=== PATIENT | female | born 1965 | race Caucasian/White ===

== ENCOUNTER 2017-01-05 10:37 | Inpatient (IN) | payer OTHER ==
[~2017-01-05] VITALS: Ht 165.1 cm; Wt 66.3 kg
[2017-01-05 10:39] VITALS: BP 168/82; PULSE 104; RESP 21; TEMP 98; O2SAT 97
[2017-01-05] MEDS ORDERED: HYDR-3111 PO (10:53)
[2017-01-05] MEDS ORDERED: ZOFR4TAB PO (10:53)
[2017-01-05] MEDS ORDERED: IBUP800T23 PO (10:53)
[2017-01-05] MEDS ORDERED: ONDANSETRON ODT 4 MG TAB PO ONE (11:30)
[2017-01-05] MEDS ORDERED: ACETAMINOPHEN/HYDROcodone 325 MG/5 MG TAB PO ONE (11:30)
--- NOTE | 2017-01-05 11:52 | PD ---
HPI Chief Complaint: Complaint Time Seen by Provider: 11:48 Travel History International Travel<30 days: Yes Contact w/Intl Traveler<30days: Yes Name of Country Traveled to: [place] Traveled to known affect area: No History of Present Illness HPI 51-year-old female that presents to the ED for evaluation of inability to urinate. Per patient she had surgery yesterday and the hospital in [place] for evaluation of what appears to be hydronephrosis with obstruction of the ureter secondary to a big fibroid tumor. Per patient she's had this time are for years and is getting more severe. Per patient she was told that she eventually will have to have the hardware removed. Apparently the urologist apply a stent to help with the hydronephrosis and she was able to urinate yesterday but today she developed urinary retention. Per patient she felt severe sharp pain on her bladder area and she could not urinate. She had the urgency. Per patient the pain was severe 8 out of 10. She has no allergies to medication. No chest pain or shortness of breath. She is not from the area and she states that she has no primary care doctor at this time. She has no allergies to medication. Pain per patient is 8 out of 10 and does not radiate. She chronically takes pain medication and anti-emetics. She came here as they have a vacation home here in [facility]. PFSH Past Medical History Diminished Hearing: No Respiratory: Yes (fibroids) Influenza Vaccination: No ?: Not LMP: 12/04/16 Past Surgical History Gynecologic Surgery: Yes (R ureteral stent placed 01/05/16) Social History Alcohol Use: Yes (socially) Tobacco Use: No Substance Use: No Allergies-Medications (Allergen,Severity, Reaction): Coded Allergies: No Known Allergies (Unverified , 01/05/17) Reported Meds & Prescriptions Reported Meds & Active Scripts Active Reported Zofran (Ondansetron HCl) 4 Mg Tab 4 Mg PO Q8HR PRN Ibuprofen 800 Mg Tab 800 Mg PO Q8H PRN Vicodin (Hydrocodone-Acetaminophen) 5-300 Mg Tab 1 Tab PO TID PRN Review of Systems Except as stated in HPI: all other systems reviewed are Neg Physical Exam Narrative GENERAL: SKIN: Warm and dry. HEAD: Atraumatic. Normocephalic. EYES: Pupils equal and round. No scleral icterus. No injection or drainage. ENT: No nasal bleeding or discharge. Mucous membranes pink and moist. Tongue is midline. No uvula deviation. NECK: Trachea midline. No JVD. CARDIOVASCULAR: Regular rate and rhythm. No murmurs, S3, S4. RESPIRATORY: No accessory muscle use. Clear to auscultation. Breath sounds equal bilaterally. GASTROINTESTINAL: Abdomen soft, non-tender, distended with a mass on the lower abdomen. Hepatic and splenic margins not palpable. MUSCULOSKELETAL: Extremities without clubbing, cyanosis, or edema. No obvious deformities. Full range of motion of the upper and lower extremities bilaterally. 2+ pulses bilaterally. NEUROLOGICAL: Awake and alert. No obvious cranial nerve deficits. Motor grossly within normal limits. Five out of 5 muscle strength in the arms and legs. Normal speech. PSYCHIATRIC: Appropriate mood and affect; insight and judgment normal. Data Data Last Documented VS Vital Signs Date Time Temp Pulse Resp B/P Pulse Ox O2 Delivery O2 Flow Rate FiO2 01/05/17 10:39 98.0 104 21 168/82 97 Orders Complete Blood Count With Diff (01/05/17 11:06) Comprehensive Metabolic Panel (01/05/17 11:06) Lipase (01/05/17 11:06) Urinalysis - C+S If Indicated (01/05/17 11:06) Cath For Specimen (01/05/17 11:06) Magnesium (Mg) (01/05/17 11:06) Iv Access Insert/Monitor (01/05/17 11:06) Ct Abd/Pel W/O Iv Contrast (01/05/17 ) Acetamin-Hydrocod 325-5 Mg ([place] 5-325 (01/05/17 11:30) Ondansetron Odt (Zofran Odt) (01/05/17 11:30) Ct Abd/Pel W Iv Contrast(Rout) (01/05/17 12:23) Urine Culture (01/05/17 11:45) Sodium Chlor 0.9% 1000 Ml Inj (Ns 1000 M (01/05/17 12:40) Iodixanol 320 Inj (Rad Ct) (Visipaque 32 (01/05/17 13:38) Admit Order (Ed Use Only) (01/05/17 14:09) Labs Laboratory Tests Test 01/05/17 01/05/17 11:45 11:54 Urine Color DARK-YELLOW Urine Turbidity HAZY Urine pH 6.0 Urine Specific [place] 1.015 Urine Protein 30 mg/dL Urine Glucose (UA) TRACE mg/dL Urine Ketones NEG mg/dL Urine Occult Blood MOD Urine Nitrite NEG Urine Bilirubin NEG Urine Urobilinogen LESS THAN 2.0 MG/DL Urine Leukocyte Esterase LARGE Urine RBC /hpf Urine WBC 41 /hpf Urine Bacteria FEW /hpf Microscopic Urinalysis Comment CULTURE INDICATED White Blood Count 12.0 TH/MM3 Red Blood Count 4.05 MIL/MM3 Hemoglobin 10.9 GM/DL Hematocrit 33.7 % Mean Corpuscular Volume 83.2 FL Mean Corpuscular Hemoglobin 26.8 PG Mean Corpuscular Hemoglobin 32.2 % Concent Red Cell Distribution Width 13.3 % Platelet Count 217 TH/MM3 Mean Platelet Volume 8.1 FL Neutrophils (%) (Auto) 85.0 % Lymphocytes (%) (Auto) 5.2 % Monocytes (%) (Auto) 8.7 % Eosinophils (%) (Auto) 0.7 % Basophils (%) (Auto) 0.4 % Neutrophils # (Auto) 10.2 TH/MM3 Lymphocytes # (Auto) 0.6 TH/MM3 Monocytes # (Auto) 1.0 TH/MM3 Eosinophils # (Auto) 0.1 TH/MM3 Basophils # (Auto) 0.1 TH/MM3 CBC Comment DIFF FINAL Differential Comment Sodium Level 135 MEQ/L Potassium Level 3.3 MEQ/L Chloride Level 102 MEQ/L Carbon Dioxide Level 24.1 MEQ/L Anion Gap 9 MEQ/L Blood Urea Nitrogen 11 MG/DL Creatinine 1.57 MG/DL Estimat Glomerular Filtration 35 ML/MIN Rate Random Glucose 102 MG/DL Calcium Level 8.4 MG/DL Magnesium Level 2.0 MG/DL Total Bilirubin 0.5 MG/DL Aspartate Amino Transf 14 U/L (AST/SGOT) Alanine Aminotransferase 20 U/L (ALT/SGPT) Alkaline Phosphatase 67 U/L Total Protein 6.6 GM/DL Albumin 3.2 GM/DL Lipase 66 U/L [facility] Medical Decision Making Medical Screen Exam Complete: Yes Emergency Medical Condition: Yes Medical Record Reviewed: Yes Interpretation(s) Last Impressions Abdomen/Pelvis CT 01/05/17 1223 Signed Impressions: Service Date/Time: Thursday, January 05, 2017 13:13 - CONCLUSION: There is significant mass effect on the bladder which is displaced anteriorly with mild to moderate hydronephrosis in both kidneys related to a huge fibroids inside the uterus the largest measures 13 cm in size causing significant mass effect on the bladder and bilateral distal ureters. Jessica Welsh MD Abdomen/Pelvis CT 01/05/17 0000 Signed Impressions: Service Date/Time: Thursday, January 05, 2017 11:34 - CONCLUSION: The tip of the double-J stent on the right is adjacent to the balloon portion of the Espinal catheter and the bladder appears decompressed displaced anteriorly with either diffuse fibroid inside the uterus or possibly collection of urine extravasated behind the bladder. Please refer to postcontrast CT examination which was performed after this study for complete discussion. Jessica Weslh MD CBC & BMP Diagram 01/05/17 11:54 UA shows possible UTI Differential Diagnosis Urinary retention versus neurogenic bladder versus stent placement versus infection versus postsurgical complication Narrative Course 51-year-old female that presents to the ED for evaluation of urinary retention. Patient was properly examined and was found to have signs and symptoms very consistent appears to be urinary retention. Likely postsurgical complication. Patient had a Espinal catheter before I went into the room to had drained about 900 cc of fluid. Patient felt complete relief of symptoms. Patient has no other complaints. She does have a significant fibroid that appears to be causing all of the symptoms. Unclear as to why they have not removed this but from what I can tell she does not have a [facility] follow-up as of yet. At this time recommend labs and imaging to make sure patient doesn't have anything else. Case was discussed in my attending Dr Potter who agrees with plan. Labs and imaging showed massive fibroid masses on the uterus that apparently is blocking the bladder as well as ureters bilaterally with hydronephrosis. Case was discussed in my attending who recommends we speak with [facility] for further evaluation as patient's likely only treatment is to remove the uterus and the fibroids to get this resolved. Case was discussed with Dr. Tomlin who agrees to admission, but wants us to admit to medicine secondary to abnormal kidney function. Patient was told this and agrees with plan. IVONNE lo and Dr Morrison agrees to admit with consult to Dr Tomlin. Diagnosis Primary Impression: Obstructive uropathy Additional Impressions: Hydronephrosis Qualified Code: N13.30 - Hydronephrosis, unspecified hydronephrosis type Uterine fibroid Qualified Code: D25.9 - Uterine leiomyoma, unspecified location UTI (urinary tract infection) Qualified Code: N30.01 - Acute cystitis with hematuria Pelvic mass in female Admitting Information Admitting Physician Requests: Admit Chucho Powell Jan 05, 2017 11:52 Chucho Powell Jan 05, 2017 11:52
[2017-01-05 12:14] LABS: AUTOMATED NEUTROPHIL # 10.2 TH/MM3 (1.8-7.7); BASOPHIL # 0.1 TH/MM3 (0-0.2); BASOPHIL % 0.4 % (0.0-2.0); EOSINOPHIL # 0.1 TH/MM3 (0-0.4); EOSINOPHIL % 0.7 % (0.0-4.0); HEMATOCRIT 33.7 % (35.0-46.0); HEMO FLAGS DIFF FINAL; LYMPH % 5.2 % (9.0-44.0); LYMPHOCYTE # 0.6 TH/MM3 (1.0-4.8); MEAN CELL VOLUME 83.2 FL (80.0-100.0); MEAN CORPUSCULAR HEMOGLOBIN 26.8 PG (27.0-34.0); MEAN CORPUSCULAR HGB CONC 32.2 % (32.0-36.0); MONO % 8.7 % (0.0-8.0); PLATELET COUNT 217 TH/MM3 (150-450); RED BLOOD COUNT 4.05 MIL/MM3 (4.00-5.30); RED CELL DISTRIBUTION WIDTH 13.3 % (11.6-17.2)
[2017-01-05 12:27] LABS: BACTERIA, URINE FEW /hpf; BLOOD, URINE MOD (NEG); COMMENT (UR) CULTURE INDICATED; CULTURE IF INDICATED CULTURE INDICATED; GLUCOSE,URINE TRACE mg/dL (NEG); KETONE, URINE NEG (NEG); NITRITE,URINE NEG (NEG)
[2017-01-05 12:28] LABS: URINE COLOR DARK-YELLOW (YELLW/STRAW)
[2017-01-05 12:37] LABS: ALT (GPT) 20 U/L (10-53); ANION GAP 9 MEQ/L (5-15); AST (GOT) 14 U/L (15-37); BICARBONATE 24.1 MEQ/L (21.0-32.0); BLOOD UREA NITROGEN 11 MG/DL (7-18); CHLORIDE 102 MEQ/L (98-107); GLOMERULAR FILTRATION RATE 35 ML/MIN (>89); POTASSIUM 3.3 MEQ/L (3.5-5.1); SODIUM (NA) 135 MEQ/L (136-145)
[2017-01-05 12:39] LABS: ALKALINE PHOSPHATASE 67 U/L (45-117); TOTAL BILIRUBIN ADULT 0.5 MG/DL (0.2-1.0)
[2017-01-05] MEDS ORDERED: SODIUM CHLOR 0.9% 1000 ML INJ 1,000 ML IV SCH (12:40)
[2017-01-05] MEDS ORDERED: IODIXANOL 320 MG/ML 10 ML VIAL (for Rad CT) IV ONE (13:38)
--- NOTE | 2017-01-05 13:58 | RADRPT ---
EXAM DATE/TIME: 01/05/2017 11:34 [facility] COMPARISON: No previous studies available for comparison. INDICATIONS : Abdomen pain. Urine retention post stent. ORAL CONTRAST: No oral contrast ingested. RADIATION DOSE: 7.57 CTDIvol (mGy) MEDICAL HISTORY : Fibroid SURGICAL HISTORY : None. ENCOUNTER: Initial ACUITY: 2 days PAIN SCALE: 6/10 LOCATION: Bilateral abdomen. TECHNIQUE: Volumetric scanning of the abdomen and pelvis was performed. Using automated exposure control and ad justment of the mA and/or kV according to patient size, radiation dose was kept as low as reasonably achievable to obtain optimal diagnostic quality images. DICOM format image data is available electro nically for review and comparison. FINDINGS: Double-J stent is present on the right side and there appears to be either a large mass behind t he bladder which is completely displaced anteriorly versus fluid collection and possibly urine extrav asation at this site. The uterus appears enlarged and the distal tip of the double J stent is in donna cent to the balloon portion of the Espinal catheter. The proximal portion of the double-J stent on the right side is inside the renal pelvis. There is slight to moderate hydronephrosis in both kidneys. Th e liver, spleen, pancreas, adrenals are unremarkable. CONCLUSION: The tip of the double-J stent on the right is adjacent to the balloon portion of the Espinal catheter a nd the bladder appears decompressed displaced anteriorly with either diffuse fibroid inside the uteru s or possibly collection of urine extravasated behind the bladder. Please refer to postcontrast CT ex amination which was performed after this study for complete discussion. Jessica Welsh MD on January 05, 2017 at 13:54 Board Certified Radiologist. This report was verified electronically.
--- NOTE | 2017-01-05 14:01 | RADRPT ---
EXAM DATE/TIME: 01/05/2017 13:13 [facility] COMPARISON: CT ABDOMEN & PELVIS W/O CONTRAST, January 05, 2017, 11:34. INDICATIONS : Urinary retention. IV CONTRAST: 50 cc Visipaque (iodixanol) IV ORAL CONTRAST: No oral contrast ingested. RADIATION DOSE: 9.96 CTDIvol (mGy) MEDICAL HISTORY : None SURGICAL HISTORY : Ureteral stent. ENCOUNTER: Initial ACUITY: 1 day PAIN SCALE: 5/10 LOCATION: Bilateral TECHNIQUE: Volumetric scanning of the abdomen and pelvis was performed. Using automated exposure control and ad justment of the mA and/or kV according to patient size, radiation dose was kept as low as reasonably achievable to obtain optimal diagnostic quality images. DICOM format image data is available electro nically for review and comparison. FINDINGS: There is hydronephrosis in both kidneys and the proximal tip of the double J stent is in good lo cation within the right renal pelvis. The distal tip appears to be coiled on the right side adjacent to the balloon tip of the patient's Espinal catheter. Delayed imaging was performed and contrast fills the bladder which is basically decompressed and displaced anteriorly by a huge fibroids within the ut erus the largest one measures 13.3 cm in size. There is no evidence for urine extravasation. CONCLUSION: There is significant mass effect on the bladder which is displaced anteriorly with mild to moderate h ydronephrosis in both kidneys related to a huge fibroids inside the uterus the largest measures 13 cm in size causing significant mass effect on the bladder and bilateral distal ureters. Jessica Welsh MD on January 05, 2017 at 13:56 Board Certified Radiologist. This report was verified electronically.
[2017-01-05] MEDS ORDERED: ACETAMINOPHEN 325 MG TAB PO PRN (17:00)
[2017-01-05] MEDS ORDERED: MAGNESIUM HYDROXIDE SUSP 30 ML CUP PO PRN (17:00)
[2017-01-05] MEDS ORDERED: BISACODYL 10 MG SUPP RECTAL PRN (17:00)
[2017-01-05] MEDS ORDERED: ONDANSETRON HCL 4 MG/2 ML VIAL IVP PRN (17:00)
[2017-01-05] MEDS ORDERED: SODIUM CHLORIDE 0.9% FLUSH 10 ML FLUSH IV FLUSH PRN (17:00)
[2017-01-05] MEDS ORDERED: LACTULOSE SYRUP 20 GM/30 ML CUP PO PRN (17:00)
[2017-01-05] MEDS ORDERED: SENNOSIDES 8.6 MG TAB PO PRN (17:00)
[2017-01-05] MEDS ORDERED: POTASSIUM CHLORIDE 10 MEQ CONTROLLED RELEASE TAB PO ONE (17:00)
[2017-01-05 17:20] VITALS: BP 130/81; PULSE 62; RESP 14; O2SAT 100
[2017-01-05] MEDS: SODIUM CHLOR 0.9% 1000 ML INJ 1,000 ML IV SCH (17:20)
--- NOTE | 2017-01-05 17:30 | HHI.HP ---
[facility] Service [facility] Primary Care Physician Non-Staff Admission Diagnosis bladder obstruction, urether obstruction with hydronephrosis, fibroi Diagnoses: Chief Complaint: Urinary retention Large uterine fibroid Travel History International Travel<30 Days: Yes Contact w/Intl Traveler <30 Da: Yes Name of Country Traveled to: [place] Traveled to Known Affected Are: No History of Present Illness Written by Lashell Hall PA-C acting as scribe for Dr. Morrison on 01/05/17 at 17:07. This is a 51-year-old female with no significant past medical history who developed sudden onset of the right upper quadrant pain on that became so severe that she went to a hospital in [place] and was diagnosed with a right sided hydronephrosis with obstruction of the ureter secondary to a large fibroid tumor. CT report dated 01/02/17 states moderate severity right hydronephrosis and hydroureter due to a 13 cm pelvic mass which most likely is a fibroid uterus impinging on the posterior bladder wall. Patient also brought in for review report of a right upper quadrant ultrasound dated 01/02/17 stating mild right-sided hydronephrosis, no intrarenal calculi demonstrated enlarged myomatous uterus with dominant posterior fibroid measuring up to 10.9 x 7.3 x 9.3 cm. Also, 2 nonmobile non-shadowing echogenic foci along the gallbladder wall towards the neck which measures 2-3 mm most compatible with gallbladder polyps likely cholesterol polyps. No evidence of cholelithiasis or gallbladder wall thickening. Common bile duct is normal in at caliber 5 mm. Patient underwent ureteral stent placement and was discharged. Today, patient developed sudden onset of urinary retention associated with significant abdominal bloating and pain. Patient came into the ED and had a catheter placed with 900ml urinary output. Following placement of the catheter, her symptoms resolved. Patient denies any recent illness. She denies any fever or chills. She denies any nausea, vomiting or diarrhea. She denies any chest pain or shortness of breath. Patient reports normal menstrual cycles and denies any branch credit counselor complaints. She reports having her regular branch credit counselor exam 2 weeks ago and was not notified of any abnormalities. Review of Systems Except as stated in HPI: all other systems reviewed are Neg Past Family Social History Past Medical History Patient denies any previous past medical history Past Surgical History Patient denies any previous surgical procedures Reported Medications Zofran (Ondansetron HCl) 4 Mg Tab 4 Mg PO Q8HR PRN Ibuprofen 800 Mg Tab 800 Mg PO Q8H PRN Vicodin (Hydrocodone-Acetaminophen) 5-300 Mg Tab 1 Tab PO TID PRN Allergies: Coded Allergies: No Known Allergies (Unverified , 01/05/17) Active Ordered Medications Current Medications Medications (Trade) Dose Ordered Sig/Leslie Route Start Time Stop Time Status Last Admin (NS 1000 ml Inj) 1,000 ml @ 100 mls/hr Q10H IV 01/05/17 16:58 (NS Flush) 2 ml UNSCH PRN IV FLUSH 01/05/17 17:00 UNV (NS Flush) 2 ml BID IV FLUSH 01/05/17 21:00 UNV (Tylenol) 650 mg Q4H PRN PO 01/05/17 17:00 (Zofran Inj) 4 mg Q6H PRN IVP 01/05/17 17:00 (Phuong-Colace) 1 tab BID PO 01/05/17 21:00 (Milk Of Magnesia Liq) 30 ml Q12H PRN PO 01/05/17 17:00 (Senokot) 17.2 mg Q12H PRN PO 01/05/17 17:00 (Dulcolax Supp) 10 mg DAILY PRN RECTAL 01/05/17 17:00 Lactulose 30 ml 30 ml DAILY PRN PO 01/05/17 17:00 (Rocephin Inj/NS Inj) 100 ml @ 200 mls/hr Q24H IV 01/05/17 17:00 UNV Family History Sister, breast cancer Social History Patient denies any tobacco use. Patient reports "social" drinking. Denies any illicit drug use. She is and has 2 children. Physical Exam Vital Signs Vital Signs Date Time Temp Pulse Resp B/P Pulse Ox O2 Delivery O2 Flow Rate FiO2 01/05/17 10:39 98.0 104 21 168/82 97 Physical Exam GENERAL: This is a well-nourished, well-developed patient, in no apparent distress. Awake and alert. Daughters at the bedside. SKIN: No rashes, ecchymoses or lesions. Cool and dry. HEAD: Atraumatic. Normocephalic. No temporal or scalp tenderness. EYES: Pupils equal round and reactive. Extraocular motions intact. No scleral icterus. No injection or drainage. ENT: Nose without bleeding, purulent drainage or septal hematoma. Throat without erythema, tonsillar hypertrophy or exudate. Uvula midline. Airway patent. NECK: Trachea midline. No lymphadenopathy. Supple, nontender, no meningeal signs. CARDIOVASCULAR: Regular rate and rhythm. 2/6 systolic murmur present. RESPIRATORY: Clear to auscultation. Breath sounds equal bilaterally. No wheezes , rales, or rhonchi. GASTROINTESTINAL: Abdomen soft, non-tender. No hepato-splenomegaly. No guarding. Palpable mass extending up to just below the umbilicus. Mild left- sided CVA tenderness. MUSCULOSKELETAL: Extremities without clubbing, cyanosis, or edema. No joint tenderness, effusion, or edema noted. No calf tenderness. NEUROLOGICAL: Awake and alert. Able to move all extremities. Motor and sensory grossly intact. Normal speech. Laboratory Laboratory Tests Test 01/05/17 01/05/17 11:45 11:54 Urine Color DARK-YELLOW Urine Turbidity HAZY Urine pH 6.0 Urine Specific [place] 1.015 Urine Protein 30 Urine Glucose (UA) TRACE Urine Ketones NEG Urine Occult Blood MOD Urine Nitrite NEG Urine Bilirubin NEG Urine Urobilinogen LESS THAN 2.0 Urine Leukocyte Esterase LARGE Urine RBC Urine WBC 41 Urine Bacteria FEW Microscopic Urinalysis Comment CULTURE INDICATED White Blood Count 12.0 Red Blood Count 4.05 Hemoglobin 10.9 Hematocrit 33.7 Mean Corpuscular Volume 83.2 Mean Corpuscular Hemoglobin 26.8 Mean Corpuscular Hemoglobin 32.2 Concent Red Cell Distribution Width 13.3 Platelet Count 217 Mean Platelet Volume 8.1 Neutrophils (%) (Auto) 85.0 Lymphocytes (%) (Auto) 5.2 Monocytes (%) (Auto) 8.7 Eosinophils (%) (Auto) 0.7 Basophils (%) (Auto) 0.4 Neutrophils # (Auto) 10.2 Lymphocytes # (Auto) 0.6 Monocytes # (Auto) 1.0 Eosinophils # (Auto) 0.1 Basophils # (Auto) 0.1 CBC Comment DIFF FINAL Differential Comment Sodium Level 135 Potassium Level 3.3 Chloride Level 102 Carbon Dioxide Level 24.1 Anion Gap 9 Blood Urea Nitrogen 11 Creatinine 1.57 Estimat Glomerular Filtration 35 Rate Random Glucose 102 Calcium Level 8.4 Magnesium Level 2.0 Total Bilirubin 0.5 Aspartate Amino Transf 14 (AST/SGOT) Alanine Aminotransferase 20 (ALT/SGPT) Alkaline Phosphatase 67 Total Protein 6.6 Albumin 3.2 Lipase 66 Date/Time Procedure Status Source Growth 01/05/17 11:45 Urine Culture Received Urine Clean Catch Pending Result Diagram: 01/05/17 1154 01/05/17 1154 Imaging Last Impressions Abdomen/Pelvis CT 01/05/17 1223 Signed Impressions: Service Date/Time: Thursday, January 05, 2017 13:13 - CONCLUSION: There is significant mass effect on the bladder which is displaced anteriorly with mild to moderate hydronephrosis in both kidneys related to a huge fibroids inside the uterus the largest measures 13 cm in size causing significant mass effect on the bladder and bilateral distal ureters. Jessica Welsh MD Assessment and Plan Assessment and Plan 51-year-old female with no significant past medical history who developed sudden onset of the right quadrant pain on that became so severe that she went to a hospital in [place] and was diagnosed with a right sided hydronephrosis with obstruction of the ureter secondary to a large fibroid tumor and underwent ureteral stent placement. Today, patient developed urinary retention with associated abdominal bloating and pain. Catheter placed and 900cc urine drained. Large uterine fibroid - CT abd/pelvis personally reviewed shows significant mass effect on the bladder which is displaced anteriorly with mild to moderate hydronephrosis in both kidneys related to huge fibroids inside the uterus the largest measuring 13 cm in size causing significant mass effect on the bladder and bilateral distal ureters. - Gynecology consulted, Dr. Tomlin discussed with ED service - Plan for possible hysterectomy tomorrow - Nothing by mouth after midnight Urinary Retention - secondary to large uterine fibroid - continue jo catheter UTI - UA with proteinuria, moderate occult blood, large leukocytes and 41 WBCs - IV ceftriaxone - follow up on urine culture results EUGENIO - Creatinine 1.57 - secondary to obstruction/urinary retention - Avoid nephrotoxic agents - IVF - am labs to monitor trend Anemia - mild - monitor Hypokalemia - Repletion ordered - A.m. labs to monitor trend Hyponatremia -mild - IVF DVT prophylaxis - Bilateral SCD/DELL joseph Discussed Condition With patient, daughter, ED physician Physician Certification 2 Midnight Certification Type: Admission for Inpatient Services Order for Inpatient Services The services are ordered in accordance with Medicare regulations or non- Medicare payer requirements, as applicable. In the case of services not specified as inpatient-only, they are appropriately provided as inpatient services in accordance with the 2-midnight benchmark. Estimated LOS (days): 3 3 days is the estimated time the patient will need to remain in the hospital, assuming treatment plan goals are met and no additional complications. Post-Hospital Plan: Not yet determined Lashell Hall Jan 05, 2017 17:30
[2017-01-05] MEDS: cefTRIAXone INJ 2,000 MG in SODIUM CHLORIDE 0.9% INJ 100 ML IV SCH (18:16)
[2017-01-05] MEDS ORDERED: ACETAMINOPHEN/HYDROcodone 325 MG/5 MG TAB PO PRN (19:45)
[2017-01-05] MEDS: DOCUSATE SODIUM 50 MG/SENNA 8.6 MG TAB PO SCH (19:56)
[2017-01-05] MEDS: ACETAMINOPHEN/HYDROcodone 325 MG/10 MG TAB PO PRN (19:56)
[2017-01-05 20:00] VITALS: BP 143/78; PULSE 66; RESP 17; TEMP 99.9; O2SAT 99
[2017-01-05] MEDS: SODIUM CHLORIDE 0.9% FLUSH 10 ML FLUSH IV FLUSH SCH (21:00)
--- NOTE | 2017-01-05 21:12 | PD.CONS ---
HPI Chief Complaint Urinary retention Date Seen: Jan 05, 2017 Time Seen: 20:30 Travel History International Travel<30 Days: Yes Contact w/Intl Traveler<30Days: Yes Name of Country Traveled to: [place] Known Affected Area: No History of Present Illness HPI 51y/o P2002 presented to ED with acute onset RUQ pain localized to under her right ribcage that started the morning of 01/02/17. She reports the pain was excruciating and 10/10. There were no aggravating or alleviating factors and the pain was constant. She presented to [facility] where she was noted on a RUQ US to have a dominant posterior fibroid measuring up to 10.9x7.3x9.3cm. She was also noted to have right sided hydronephrosis and hydroureter on CT, so underwent placement of right ureteral stent yesterday on . She reports her pain resolved after the stent was placed and she was d/ c home. Upon questioning, she realized she only urinated a small amount after she was home, but was busy getting ready to leave for vacation today. She was last able to void at home, but just a small amount sometime between 7-11pm. She reports she had the sensation to void but was only able to pass a small amount of urine. She reports that she was not able to void at all after that until she came to the ED this morning. She came to the ED because she started having severe pain in her lower abdomen in her bladder area that was 8/10 and a lot of pressure in her bladder. There was no radiation of the pain and no alleviating or aggravating factors (except it was getting worse over time). There were no attempted treatments. She came up here after she was released from the hospital because [place] in [facility] and she was feeling well; they were planning to vacation here until Friday (for 1w). She had a jo placed after arriving in the ED and had about (per records) 900cc urine retained. She reports that her pain immediately resolved until about an hour ago when she had some mild flank pain that has resolved. In the ED, CT showed tip of double-J stent on the right is adjacent to the balloon portion of the Jo and the bladder appears decompressed displaced anteriory with either diffuse fibroid inside the uterus or possibly collection of urine extravacated behind the bladder. F/U contrast CT showed significant mass effect on the bladder with is displaced anteriorly with mild to moderate hydronephrosis in both kidneys related to hige fibroids inside the uterus with the largest measuring 13cm in size causing significant mass effect on the bladder and bilateral distal ureters. Labs showed K 3.3, Cr 1.57 (Cr from 01/02/17 0.75) Of note, the patient reports she sees her magazine feeder regularly and had her annual exam about 2w ago. She was not informed of any abnormality. She notes her doctor, Dr. Flaquita Nava is on vacation until next Friday (01/12/17), but she was seen at [facility] by Dr. Piotr Gomez who oked her d/c home and instructed her to f/u with her primary physician upon her return, She denies any abnormal bleeding, reports she is still having regular menses that occur every month. Her LMP was 01/03/17. She denies any abnl d/c or other utilities service investigator complaints. Para: 2 : 2 Last Menstrual Period: Dec 04, 2016 Miscarriage: 0 : 0 History Past Medical History Narrative Medical Denies Obstetric History Obstetric History P2002 FT x2 Menarch at 13 Menses last 7d Menses regular and occur every month LMP 12/04/16 Denies h/o abnl PAPs or STDs Last PAP 2w ago, normal Past Surgical History Narrative Surgical R ureteral stent (01/04/17) Family History Narrative Family History Breast CA (sister, dx at 45y/o) Social History Alcohol Use: Yes (Social only) Tobacco Use: No Substance Abuse: No Allergies-Medications (Allergen,Severity, Reaction): Coded Allergies: No Known Allergies (Unverified , 01/05/17) Home Meds Reported Medications Ondansetron (Zofran)4 Mg Tab4 Mg PO Q8HR PRN (NAUSEA OR VOMITING) Ref 0 01/05/17 Ibuprofen 800 Mg Saa590 Mg PO Q8H PRN (Pain/Inflammation) #60 TAB Ref 0 01/05/17 Hydrocodone-Acetaminophen (Vicodin)5-300 Mg Tab1 Tab PO TID PRN (PAIN) Ref 0 01/05/17 Review of Systems Except as stated in HPI: all other systems reviewed are Neg Physical Exam Vital Signs Date Time Temp Pulse Resp B/P Pulse Ox O2 Delivery O2 Flow Rate FiO2 01/05/17 20:00 99.9 66 17 143/78 99 01/05/17 17:20 62 14 130/81 100 Room Air 01/05/17 10:39 98.0 104 21 168/82 97 Narrative GENERAL: Well-nourished, well-developed patient. SKIN: Warm and dry. HEAD: Normocephalic and atraumatic. EYES: No scleral icterus. No injection or drainage. ENT: No nasal drainage noted. Mucous membranes pink. Airway patent. NECK: Supple, trachea midline. No JVD. CARDIOVASCULAR: Regular rate and rhythm without murmurs, gallops, or rubs. RESPIRATORY: Breath sounds equal bilaterally. No accessory muscle use. BREASTS: deferred ABDOMEN/GI: Abdomen soft, non-tender, bowel sounds present, no rebound, no guarding Fundal Height: Uterus enlarged, approximately 12-14w size GENITOURINARY: External Genitalia: intact and normal in appearance BUS glands:normal Cervix: visibly normal, closed; normal rugae and physiological d/c, no cervical/vaginal masses EXTREMITIES: No cyanosis or edema. BACK: Nontender without obvious deformity. No CVA tenderness. NEUROLOGICAL: Awake and alert. Motor and sensory grossly within normal limits. Five out of 5 muscle strength in all muscle groups. Normal speech. MS: grossly normal ROM, gait, muscle strength PSYCH: grossly normal memory/affect, rest grossly normal Data Data Orders Complete Blood Count With Diff (01/05/17 11:06) Comprehensive Metabolic Panel (01/05/17 11:06) Lipase (01/05/17 11:06) Urinalysis - C+S If Indicated (01/05/17 11:06) Cath For Specimen (01/05/17 11:06) Magnesium (Mg) (01/05/17 11:06) Iv Access Insert/Monitor (01/05/17 11:06) Ct Abd/Pel W/O Iv Contrast (01/05/17 ) Acetamin-Hydrocod 325-5 Mg (Furlong 5-325 (01/05/17 11:30) Ondansetron Odt (Zofran Odt) (01/05/17 11:30) Ct Abd/Pel W Iv Contrast(Rout) (01/05/17 12:23) Urine Culture (01/05/17 11:45) Sodium Chlor 0.9% 1000 Ml Inj (Ns 1000 M (01/05/17 12:40) Iodixanol 320 Inj (Rad Ct) (Visipaque 32 (01/05/17 13:38) Admit Order (Ed Use Only) (01/05/17 14:09) Physician Name Changes (01/05/17 ) Consult Gynecology (01/05/17 ) (Hub Use Only)Inp Phy Cons/Ref (01/05/17 ) Admit To Inpatient (01/05/17 ) Vital Signs (Adult) Q4H (01/05/17 16:58) Activity Bed Rest With Brp (01/05/17 16:58) Intake + Output DUANE.QSHIFT (01/05/17 16:58) Sodium Chlor 0.9% 1000 Ml Inj (Ns 1000 M (01/05/17 16:58) Sodium Chloride 0.9% Flush (Ns Flush) (01/05/17 17:00) Sodium Chloride 0.9% Flush (Ns Flush) (01/05/17 21:00) Acetaminophen (Tylenol) (01/05/17 17:00) Ondansetron Inj (Zofran Inj) (01/05/17 17:00) Comprehensive Metabolic Panel (01/06/17 06:00) Complete Blood Count With Diff (01/06/17 06:00) Scd Bilateral/Knee High DUANE.BID (01/05/17 16:58) Docusate Sodium-Senna (Phuong-Colace) (01/05/17 21:00) Magnesium Hydroxide Liq (Milk Of Magnesi (01/05/17 17:00) Sennosides (Senokot) (01/05/17 17:00) Bisacodyl Supp (Dulcolax Supp) (01/05/17 17:00) Lactulose Liq (Lactulose Liq) (01/05/17 17:00) Inpatient Certification (01/05/17 ) Ceftriaxone Inj (Rocephin Inj) (01/05/17 18:00) Potassium Chloride (Kcl) (01/05/17 17:00) Diet Regular Basic (01/05/17 Dinner) Npo After Midnight W/ Po Meds (01/06/17 Breakfast) Acetamin-Hydrocod 325-5 Mg (Furlong 5-325 (01/05/17 19:45) Acetamin-Hydrocod 325-10 Mg (Furlong 10-32 (01/05/17 19:45) Labs Laboratory Tests Test 01/05/17 01/05/17 11:45 11:54 Urine Color DARK-YELLOW Urine Turbidity HAZY Urine pH 6.0 Urine Specific Apison 1.015 Urine Protein 30 Urine Glucose (UA) TRACE Urine Ketones NEG Urine Occult Blood MOD Urine Nitrite NEG Urine Bilirubin NEG Urine Urobilinogen LESS THAN 2.0 Urine Leukocyte Esterase LARGE Urine RBC Urine WBC 41 Urine Bacteria FEW Microscopic Urinalysis Comment CULTURE INDICATED White Blood Count 12.0 Red Blood Count 4.05 Hemoglobin 10.9 Hematocrit 33.7 Mean Corpuscular Volume 83.2 Mean Corpuscular Hemoglobin 26.8 Mean Corpuscular Hemoglobin 32.2 Concent Red Cell Distribution Width 13.3 Platelet Count 217 Mean Platelet Volume 8.1 Neutrophils (%) (Auto) 85.0 Lymphocytes (%) (Auto) 5.2 Monocytes (%) (Auto) 8.7 Eosinophils (%) (Auto) 0.7 Basophils (%) (Auto) 0.4 Neutrophils # (Auto) 10.2 Lymphocytes # (Auto) 0.6 Monocytes # (Auto) 1.0 Eosinophils # (Auto) 0.1 Basophils # (Auto) 0.1 CBC Comment DIFF FINAL Differential Comment Sodium Level 135 Potassium Level 3.3 Chloride Level 102 Carbon Dioxide Level 24.1 Anion Gap 9 Blood Urea Nitrogen 11 Creatinine 1.57 Estimat Glomerular Filtration 35 Rate Random Glucose 102 Calcium Level 8.4 Magnesium Level 2.0 Total Bilirubin 0.5 Aspartate Amino Transf 14 (AST/SGOT) Alanine Aminotransferase 20 (ALT/SGPT) Alkaline Phosphatase 67 Total Protein 6.6 Albumin 3.2 Lipase 66 Date/Time Procedure Status Source Growth 01/05/17 11:45 Urine Culture Received Urine Clean Catch Pending MDM Plan A/P: 51y/o P2002 1. Large fibroid uterus with posterior fibroid causing ureteral obstruction. patient s/p right ureteral stent placement. Plan in place from Dr. Gomez at [facility] for patient to f/u with primary utilities service investigator in 1w to schedule hysterectomy after primary MD and patietn return from vacation. Discussed with patient that in most cases, fibroids are present and grow slowly over time; discussed the much less common case of a rapidly enlarging uterine sarcoma. Suspect this fibroid has been present but due to location hadn't previously been noted due to posterior location and lack of symptoms. Discussed treatment options with patient and with need for hysterectomy for definitive treatment due to ureteral obstruction which appears to have been relieved by right ureteral stent. Discussed the several approaches to hysterectomy but that patient would most likely require abdominal hysterectomy. Discussed that no emergent indication for hysterectomy tonight. Discussed possible hysterectomy as inpatient vs d/c to have hysterectomy with her primary MD as long as able to void and her elevated creatine resolved; will discuss with primary team in am. Discussed that CT reports indicate more fibroids present and will obtain pelvic/ TV US for more detailed information on fibroids. Will discuss with primary attending and consult with Dr. Horner (utilities service investigator coverage) in am if needed after US results and am labs available. 2. Urinary retention: symptomatically improved with bladder decompression, may be secondary to overdistension of bladder postoperatively related to prior surgical intervention. 3. Acute kidney injury: management as per primary team 4. UTI: continue ceftriaxone 5. Hypokalemia: as per primary team Records reviewed, including patients records from [facility] Admitting diagnosis: bladder obstruction, urether obstruction with hydronephrosis, Bobbi Cormier MD Jan 05, 2017 21:12
--- NOTE | 2017-01-05 23:43 | RADRPT ---
EXAM DATE/TIME: 01/05/2017 22:19 [place] COMPARISON: CT ABDOMEN & PELVIS W CONTRAST, January 05, 2017, 13:13. INDICATIONS : Fibroids seen on CT. MEDICAL HISTORY : . SURGICAL HISTORY : Right ureteral stent. ENCOUNTER: Initial ACUITY: 2 days PAIN SCORE: 2/10 LOCATION: Bilateral pelvis MEASUREMENTS: TRANSABDOMINAL: UTERUS: 15.0 x 11.3 x 9.1cm RIGHT OVARY: 2.6 x 1.9 x 1.5cm LEFT OVARY: 4.7 x 3.0 x 2.4cm TRANSVAGINAL: ENDOMETRIAL STRIPE: 8 mm FINDINGS: UTERUS: Uterus is enlarged and heterogeneous with lobulated contour. At least 2 hypoechoic heterogeneous guanako d appearing masses are identified. One is located in the posterior uterine body measuring approximate ly 10.7 x 8.4 x 10.9 cm. Another is located in the left fundus measuring approximately 3.1 x 2.5 x 2. 9 cm. RIGHT OVARY: Ovary contains no mass or significant cystic lesion. LEFT OVARY: Ovary contains no mass or significant cystic lesion. MISCELLANEOUS: There is trace free fluid in the pelvis. CONCLUSION: 1. Enlarged and heterogeneous uterus containing at least 2 masses with the largest measuring 10.9 cm. These are not completely characterized on this study but could represent uterine fibroids. The large st has mass effect on the endometrium. 2. Trace free fluid in the posterior cul-de-sac. Faisal Gambino MD on January 05, 2017 at 23:37 Board Certified Radiologist. This report was verified electronically.
[2017-01-06] VITALS: BP 127/71; PULSE 67; RESP 18; TEMP 99.7; O2SAT 98
[2017-01-06] MEDS: ACETAMINOPHEN/HYDROcodone 325 MG/10 MG TAB PO PRN ×5 (00:17→21:37)
[2017-01-06] MEDS ORDERED: MORPHINE SULFATE 4 MG/ML INJ IV PUSH ONE (01:00)
[2017-01-06 03:03] VITALS: BP 134/75; PULSE 68
[2017-01-06] MEDS: MORPHINE SULFATE 4 MG/ML INJ IV PUSH PRN ×4 (07:25→23:20)
[2017-01-06] MEDS: SODIUM CHLOR 0.9% 1000 ML INJ 1,000 ML IV SCH ×3 (07:29→21:46)
[2017-01-06 07:54] LABS: AUTOMATED NEUTROPHIL # 7.7 TH/MM3 (1.8-7.7); BASOPHIL # 0.1 TH/MM3 (0-0.2); BASOPHIL % 1.4 % (0.0-2.0); EOSINOPHIL # 0.2 TH/MM3 (0-0.4); EOSINOPHIL % 2.1 % (0.0-4.0); HEMATOCRIT 31.1 % (35.0-46.0); HEMO FLAGS DIFF FINAL; LYMPH % 8.6 % (9.0-44.0); LYMPHOCYTE # 0.8 TH/MM3 (1.0-4.8); MEAN CELL VOLUME 82.4 FL (80.0-100.0); MEAN CORPUSCULAR HEMOGLOBIN 27.3 PG (27.0-34.0); MEAN CORPUSCULAR HGB CONC 33.2 % (32.0-36.0); MONO % 8.5 % (0.0-8.0); NEUT % 79.4 % (16.0-70.0); PLATELET COUNT 215 TH/MM3 (150-450); RED BLOOD COUNT 3.78 MIL/MM3 (4.00-5.30); RED CELL DISTRIBUTION WIDTH 13.5 % (11.6-17.2); WHITE BLOOD COUNT 9.7 TH/MM3 (4.0-11.0)
[2017-01-06 08:00] VITALS: BP 142/84; PULSE 70; RESP 14; TEMP 98.7; O2SAT 96
[2017-01-06 08:21] LABS: ALKALINE PHOSPHATASE 64 U/L (45-117); ALT (GPT) 18 U/L (10-53); ANION GAP 10 MEQ/L (5-15); AST (GOT) 13 U/L (15-37); BICARBONATE 22.4 MEQ/L (21.0-32.0); BLOOD UREA NITROGEN 8 MG/DL (7-18); CHLORIDE 111 MEQ/L (98-107); GLOMERULAR FILTRATION RATE 93 ML/MIN (>89); POTASSIUM 3.5 MEQ/L (3.5-5.1); SODIUM (NA) 143 MEQ/L (136-145); TOTAL BILIRUBIN ADULT 0.3 MG/DL (0.2-1.0)
[2017-01-06] MEDS: SODIUM CHLORIDE 0.9% FLUSH 10 ML FLUSH IV FLUSH SCH ×2 (09:08→21:38)
[2017-01-06] MEDS: DOCUSATE SODIUM 50 MG/SENNA 8.6 MG TAB PO SCH ×2 (09:09→21:38)
--- NOTE | 2017-01-06 09:29 | PD.CONS ---
History & Physical H&P S: HPI 51y/o P2002 presented to ED with acute onset RUQ pain localized to under her right ribcage that started the morning of 01/02/17, noted on a RUQ US to have a dominant posterior fibroid measuring up to 10.9x7.3x9.3cm with right sided hydronephrosis and hydroureter on CT, s/p right ureteral stent on 01/04/17, presented yesterday with oliguria s/p jo placed after arriving in the ED and had about (per records) 900cc urine retained. She reports that her pain immediately resolved. In the ED, CT showed tip of double-J stent on the right is adjacent to the balloon portion of the Jo and the bladder appears decompressed displaced anteriorly with either diffuse fibroid inside the uterus or possibly collection of urine extravasated behind the bladder. F/U contrast CT showed significant mass effect on the bladder with is displaced anteriorly with mild to moderate hydronephrosis in both kidneys related to huge fibroids inside the uterus with the largest measuring 13cm in size causing significant mass effect on the bladder and bilateral distal ureters. Overnight, patient was doing well until about 1 AM last night, when she experienced sudden onset of left sided flank pain, which resolved with morphine. She denies any fever, chills. Jo is still in. O: Physical Exam Vital Signs Date Time Temp Pulse Resp B/P Pulse Ox O2 Delivery O2 Flow Rate FiO2 01/05/17 20:00 99.9 66 17 143/78 99 01/05/17 17:20 62 14 130/81 100 Room Air 01/05/17 10:39 98.0 104 21 168/82 97 Narrative GENERAL: Well-nourished, well-developed patient. SKIN: Warm and dry. HEAD: Normocephalic and atraumatic. EYES: No scleral icterus. No injection or drainage. ENT: No nasal drainage noted. Mucous membranes pink. Airway patent. NECK: Supple, trachea midline. No JVD. CARDIOVASCULAR: Regular rate and rhythm without murmurs, gallops, or rubs. RESPIRATORY: Breath sounds equal bilaterally. No accessory muscle use. BREASTS: deferred ABDOMEN/GI: Abdomen soft, non-tender, bowel sounds present, no rebound, no guarding Fundal Height: Uterus enlarged, approximately 12-14w size : Jo in place draining dark yellow urine EXTREMITIES: No cyanosis or edema. BACK: Nontender without obvious deformity. No CVA tenderness. NEUROLOGICAL: Awake and alert. Motor and sensory grossly within normal limits. Five out of 5 muscle strength in all muscle groups. Normal speech. MSK: grossly normal ROM, gait, muscle strength PSYCH: grossly normal memory/affect, rest grossly normal A/P: Plan A/P: 51y/o P2002 1. Large fibroid uterus with posterior fibroid causing ureteral obstruction. patient s/p right ureteral stent placement. Plan in place from Dr. Gomez at [facility] for patient to f/u with primary avaya engineer in 1w to schedule hysterectomy after primary MD and patient return from vacation. Discussed possible hysterectomy as inpatient vs d/c to have hysterectomy with her primary MD as long as able to void and her elevated creatine resolved - Cr improved back to normal but Jo still in place this morning; discussed with primary team this am and consult Dr. Horner (avaya engineer coverage). 2. Urinary retention: symptomatically improved with bladder decompression, may be secondary to overdistension of bladder postoperatively related to prior surgical intervention. 3. Acute kidney injury: Creatinine trended down from 1.57 to 0.67 4. UTI: continue ceftriaxone; d/c on abx per primary team 5. Hypokalemia: as per primary team Admitting diagnosis: bladder obstruction, urether obstruction with hydronephrosis, uterine fibroids s/d/w Osmany Rocha MD R1 Jan 06, 2017 09:29 01/05/17 10:39 98.0 104 21 168/82 97 Narrative GENERAL: Well-nourished, well-developed patient. SKIN: Warm and dry. HEAD: Normocephalic and atraumatic. EYES: No scleral icterus. No injection or drainage. ENT: No nasal drainage noted. Mucous membranes pink. Airway patent. NECK: Supple, trachea midline. No JVD. CARDIOVASCULAR: Regular rate and rhythm without murmurs, gallops, or rubs. RESPIRATORY: Breath sounds equal bilaterally. No accessory muscle use. BREASTS: deferred ABDOMEN/GI: Abdomen soft, non-tender, bowel sounds present, no rebound, no guarding Fundal Height: Uterus enlarged, approximately 12-14w size EXTREMITIES: No cyanosis or edema. BACK: Nontender without obvious deformity. No CVA tenderness. NEUROLOGICAL: Awake and alert. Motor and sensory grossly within normal limits. Five out of 5 muscle strength in all muscle groups. Normal speech. MS: grossly normal ROM, gait, muscle strength PSYCH: grossly normal memory/affect, rest grossly normal MDM Plan A/P: 51y/o P2002 1. Large fibroid uterus with posterior fibroid causing ureteral obstruction. patient s/p right ureteral stent placement. Plan in place from Dr. Gomez at [facility] for patient to f/u with primary avaya engineer in 1w to schedule hysterectomy after primary MD and patient return from vacation. Discussed possible hysterectomy as inpatient vs d/c to have hysterectomy with her primary MD as long as able to void and her elevated creatine resolved; will discuss with primary team in am. Discussed that CT reports indicate more fibroids present and will obtain pelvic/ TV US for more detailed information on fibroids. Will discuss with primary attending and consult with Dr. Horner (avaya engineer coverage). 2. Urinary retention: symptomatically improved with bladder decompression, may be secondary to overdistension of bladder postoperatively related to prior surgical intervention. 3. Acute kidney injury: Creatinine trended down from 1.57 to 0.67 4. UTI: continue ceftriaxone 5. Hypokalemia: as per primary team Admitting diagnosis: bladder obstruction, urether obstruction with hydronephrosis, fibroid Osmany Anton MD R1 Jan 06, 2017 09:29
--- NOTE | 2017-01-06 10:29 | HHI.PR ---
Subjective Remarks Patient is a 51y/o P2002 who was admitted yesterday (01/05) after undergoing R ureteral stent placement on 01/04 for ureteral obstruction and hydronephrosis for a 10.9cm posterior uterine fibroid. The patient had symptomatic relief after a jo catheter was placed although has had some L back/flank pain. The patient had an initial increase in her creatinine from 0.75 (Hiram) to 1.57 after the inability to void. This has resolved and is normal today. US imaging last night showed uterus 15x11.9x9.1cm with 10.7x8.4x10.9cm posterior fibroid. At this point, there is no apparent urgent indication for hysterectomy as the ureteral obstruction has resolved with the stent, the bladder is decompressed, and the renal function has normalized. I discussed the case with Dr. Horner ( sewage treatment plant operator backup) who was in agreement that at this time, there is no urgent need for hysterectomy as long as the ureteral obstruction has resolved and that if needed another stent could be placed. I discussed this with the patient and her who remain concerned about the fibroid. We discussed other possible causes for her pain, including the UTI for which she is on Rocephin 2g q24h. I discussed the case with Dr. Morrison who plans to remove the jo later today for a voiding trial and repeat renal imaging tomorrow. He indicated that he will communicate directly with Dr. Horner if further sewage treatment plant operator intervention or a left stent is needed due to unresolved left hydronephrosis. Appreciate consult and assistance from Dr. Horner who was notified with update on plan from primary MD. Objective Vital Signs Date Time Temp Pulse Resp B/P Pulse Ox O2 Delivery O2 Flow Rate FiO2 01/06/17 09:08 16 01/06/17 08:00 98.7 70 14 142/84 96 01/06/17 03:03 68 134/75 01/06/17 00:00 99.7 67 18 127/71 98 01/05/17 20:00 99.9 66 17 143/78 99 01/05/17 17:20 62 14 130/81 100 Room Air 01/05/17 10:39 98.0 104 21 168/82 97 I/O 01/05/17 01/05/17 01/05/17 01/06/17 01/06/17 01/06/17 07:00 15:00 23:00 07:00 15:00 23:00 Intake Total 0 ml Output Total 2650 ml 1700 ml 300 ml Balance -2650 ml -1700 ml -300 ml Intake Oral 0 ml Output Urine Total 2650 ml 1700 ml 300 ml # Bowel Movements 0 Result Diagram: 01/06/17 0746 01/06/17 0746 Bobbi Tomlin MD Jan 06, 2017 10:29
[2017-01-06 12:00] VITALS: BP 145/85; PULSE 70; RESP 12; TEMP 97.8; O2SAT 97
--- NOTE | 2017-01-06 13:36 | HHI.PR ---
Subjective Remarks patient states she had severe left flank pain last night states pain is better but still present had a low grade temp with a t max of 99.9 Objective Vitals Vital Signs Date Time Temp Pulse Resp B/P Pulse Ox O2 Delivery O2 Flow Rate FiO2 01/06/17 12:00 97.8 70 12 145/85 97 01/06/17 11:59 16 01/06/17 11:59 16 01/06/17 08:00 98.7 70 14 142/84 96 01/06/17 03:03 68 134/75 01/06/17 00:00 99.7 67 18 127/71 98 01/05/17 20:00 99.9 66 17 143/78 99 01/05/17 17:20 62 14 130/81 100 Room Air I/O 01/05/17 01/05/17 01/05/17 01/06/17 01/06/17 01/06/17 07:00 15:00 23:00 07:00 15:00 23:00 Intake Total 0 ml 678 ml Output Total 2650 ml 1700 ml 300 ml Balance -2650 ml -1700 ml -300 ml 678 ml Intake Oral 0 ml IV Total 678 ml Output Urine Total 2650 ml 1700 ml 300 ml # Bowel Movements 0 Result Diagram: 01/06/17 0746 01/06/17 0746 Imaging Last Impressions Abdomen/Pelvis CT 01/05/17 1223 Signed Impressions: Service Date/Time: Thursday, January 05, 2017 13:13 - CONCLUSION: There is significant mass effect on the bladder which is displaced anteriorly with mild to moderate hydronephrosis in both kidneys related to a huge fibroids inside the uterus the largest measures 13 cm in size causing significant mass effect on the bladder and bilateral distal ureters. Jessica Welsh MD Pelvis Ultrasound 01/05/17 0000 Signed Impressions: Service Date/Time: Thursday, January 05, 2017 22:19 - CONCLUSION: 1. Enlarged and heterogeneous uterus containing at least 2 masses with the largest measuring 10.9 cm. These are not completely characterized on this study but could represent uterine fibroids. The largest has mass effect on the endometrium. 2. Trace free fluid in the posterior cul-de-sac. Faisal Gambino MD Objective Remarks AAOx3 NAD Clear lungs BL Left CVA tenderness mildly distended abdomen with present bowel sounds no edema in extremities Medications and IVs Current Medications Medications (Trade) Dose Ordered Sig/Leslie Route Start Time Stop Time Status Last Admin (NS 1000 ml Inj) 1,000 ml @ 100 mls/hr Q10H IV 01/05/17 16:58 01/06/17 13:31 (NS Flush) 2 ml UNSCH PRN IV FLUSH 01/05/17 17:00 (NS Flush) 2 ml BID IV FLUSH 01/05/17 21:00 (Tylenol) 650 mg Q4H PRN PO 01/05/17 17:00 (Zofran Inj) 4 mg Q6H PRN IVP 01/05/17 17:00 (Phuong-Colace) 1 tab BID PO 01/05/17 21:00 (Milk Of Magnesia Liq) 30 ml Q12H PRN PO 01/05/17 17:00 (Senokot) 17.2 mg Q12H PRN PO 01/05/17 17:00 (Dulcolax Supp) 10 mg DAILY PRN RECTAL 01/05/17 17:00 Lactulose 30 ml 30 ml DAILY PRN PO 01/05/17 17:00 (Rocephin Inj/NS Inj) 100 ml @ 200 mls/hr Q24H IV 01/05/17 18:00 01/05/17 18:16 ([place] 5-325 Mg) 1 tab Q4H PRN PO 01/05/17 19:45 ([place] 10-325 Mg) 1 tab Q4H PRN PO 01/05/17 19:45 01/06/17 13:31 (Morphine Inj) 2 mg Q2HR PRN IV PUSH 01/06/17 03:15 01/06/17 11:55 A/P Problem List: (1) Uterine fibroid ICD Code: D25.9 Status: Acute Plan: CT abd/pelvis personally reviewed shows significant mass effect on the bladder which is displaced anteriorly with mild to moderate hydronephrosis in both kidneys related to huge fibroids inside the uterus the largest measuring 13 cm in size causing significant mass effect on the bladder and bilateral distal ureters. The case was discussed over the phone with Dr. Tomlin. Kidney function has resolved and returned to normal after insertion of Espinal catheter probably pointing to urinary retention as the main etiology for the acute kidney injury. At this point Dr. Tomlin and night crew that there is now emergency on undergoing a hysterectomy. I explained this to the patient, however the patient is adamant that she will not leave the hospital until she has a definite treatment with a hysterectomy before she leaves the hospital. I will discuss the case with Dr. Horner. (2) Obstructive uropathy ICD Code: N13.9 Status: Acute Plan: Likely secondary to urinary retention probably secondary to postop bladder distention versus bladder spasm secondary to stent placement. Will do water trials in a.m., if patient not able to urinate then the patient can leave home with a leg back to follow-up as an outpatient for more definitive treatment. (3) Hydronephrosis ICD Code: N13.30 Status: Acute Plan: Hydronephrosis likely secondary to urinary retention and uterine fibroid compression of the ureters. I will follow up recommendations provided by Dr. Horner. (4) Pyelonephritis ICD Code: N12 Status: Acute Plan: Patient with left CVA tenderness, positive urinalysis, on IV Rocephin 2 g every 24 hours which I will continue. Urine culture pending. Continue pain control with [place] and morphine when necessary. Continue IV fluids (5) EUGENIO (acute kidney injury) ICD Code: N17.9 Status: Resolved Plan: Resolved after Espinal placement and IV fluid administration. Likely due to obstructive uropathy secondary to urinary retention and in less part secondary to uterine fibroid. Assessment and Plan DVT prophylaxis: SCDs. Discharge Planning Possible discharge in a.m. Pending clinical improvement and urine culture as well as Dr. Horner's recommendations. Problem Qualifiers (1) Uterine fibroid: Qualified Code: D25.9 - Uterine leiomyoma, unspecified location (2) Hydronephrosis: Qualified Code: N13.30 - Hydronephrosis, unspecified hydronephrosis type Chad Russell MD Jan 06, 2017 13:36
[2017-01-06 17:30] VITALS: BP 133/63; PULSE 71; RESP 16; TEMP 98.8; O2SAT 97
--- NOTE | 2017-01-06 18:04 | PD.CONS ---
HPI Chief Complaint FIBROIDS URINARY RETENTION HYDRONEPHROSIS WITH PRIOR STENT PLACEMENT Travel History International Travel<30 Days: Yes Contact w/Intl Traveler<30Days: Yes Name of Country Traveled to: [place] Known Affected Area: No Allergies-Medications (Allergen,Severity, Reaction): Coded Allergies: No Known Allergies (Unverified , 01/05/17) Home Meds Reported Medications Ondansetron (Zofran)4 Mg Tab4 Mg PO Q8HR PRN (NAUSEA OR VOMITING) Ref 0 01/05/17 Ibuprofen 800 Mg [id number] Mg PO Q8H PRN (Pain/Inflammation) #60 TAB Ref 0 01/05/17 Hydrocodone-Acetaminophen (Vicodin)5-300 Mg Tab1 Tab PO TID PRN (PAIN) Ref 0 01/05/17 Physical Exam Exam Limitations: Other: (NOT ) Vital Signs Date Time Temp Pulse Resp B/P Pulse Ox O2 Delivery O2 Flow Rate FiO2 01/06/17 12:00 97.8 70 12 145/85 97 01/06/17 11:59 16 01/06/17 11:59 16 01/06/17 08:00 98.7 70 14 142/84 96 01/06/17 03:03 68 134/75 01/06/17 00:00 99.7 67 18 127/71 98 01/05/17 20:00 99.9 66 17 143/78 99 Data Data Orders Npo After Midnight W/ Po Meds (01/06/17 Breakfast) Acetamin-Hydrocod 325-5 Mg ([place] 5-325 (01/05/17 19:45) Acetamin-Hydrocod 325-10 Mg ([place] 10-32 (01/05/17 19:45) Us Pelvis Comp W Transvaginal (01/05/17 ) Morphine Inj (Morphine Inj) (01/06/17 01:00) Morphine Inj (Morphine Inj) (01/06/17 03:15) Diet Regular Basic (01/06/17 Lunch) Labs Laboratory Tests Test 01/06/17 07:46 White Blood Count 9.7 Red Blood Count 3.78 Hemoglobin 10.3 Hematocrit 31.1 Mean Corpuscular Volume 82.4 Mean Corpuscular Hemoglobin 27.3 Mean Corpuscular Hemoglobin 33.2 Concent Red Cell Distribution Width 13.5 Platelet Count 215 Mean Platelet Volume 8.5 Neutrophils (%) (Auto) 79.4 Lymphocytes (%) (Auto) 8.6 Monocytes (%) (Auto) 8.5 Eosinophils (%) (Auto) 2.1 Basophils (%) (Auto) 1.4 Neutrophils # (Auto) 7.7 Lymphocytes # (Auto) 0.8 Monocytes # (Auto) 0.8 Eosinophils # (Auto) 0.2 Basophils # (Auto) 0.1 CBC Comment DIFF FINAL Differential Comment Sodium Level 143 Potassium Level 3.5 Chloride Level 111 Carbon Dioxide Level 22.4 Anion Gap 10 Blood Urea Nitrogen 8 Creatinine 0.67 Estimat Glomerular Filtration 93 Rate Random Glucose 81 Calcium Level 8.2 Total Bilirubin 0.3 Aspartate Amino Transf 13 (AST/SGOT) Alanine Aminotransferase 18 (ALT/SGPT) Alkaline Phosphatase 64 Total Protein 6.1 Albumin 2.8 Date/Time Procedure Status Source Growth 01/05/17 11:45 Urine Culture - Preliminary Resulted Urine Clean Catch NO GROWTH IN 24 HOURS. MDM Medical Record Reviewed: Yes Interpretation(s) I HAVE REVIEWED THE CHART AND DISCUSSED WITH MEDICAL TEAM AND CONSULTANTS THIS IS NOT AN EMERGENT CASE THE FIBROIDS HAVE BEEN PRESENT FOR YEARS SHE HAD A STENT PLACED IN [place] PRIOR TO COMING UP FOR VACATION THE RETENTION IS RELATED TO SPASMS RELATED TO THE STENT THERE IS NO WAY I CAN PERFORM A ROBOTIC OR MIGS CASE IN THIS SETTING AND AN OPEN CASE IS NOT IN HER BEST INTEREST SHE HAS IMPROVED RENAL FX WITH THE CATHETER AND STENT SHE SHOULD BE DISCHARGED WITH BOTH AND F/U WITH HER ESTABLISHED CARPENTER HELPER I AM HAPPY TO DISCUSS MORE IN DETAIL WITH HER TOMORROW IF STILL IN HOUSE. SHE IS ALSO WELCOME TO SEEK SECOND OPINION WITH INSPECTOR [employer]ET [employer] IF SHE WISHES. CALL [phone] WITH ANY QUESTIONS. Admitting diagnosis: bladder obstruction, urether obstruction with hydronephrosis, fibroi Star Horner MD Jan 06, 2017 18:04
[2017-01-06] MEDS: cefTRIAXone INJ 2,000 MG in SODIUM CHLORIDE 0.9% INJ 100 ML IV SCH (18:49)
[2017-01-06 20:00] VITALS: BP 135/75; PULSE 71; RESP 18; TEMP 97.6; O2SAT 94
[2017-01-07] VITALS: BP 143/80; PULSE 60; RESP 18; TEMP 97.4; O2SAT 95
[2017-01-07] MEDS: MORPHINE SULFATE 4 MG/ML INJ IV PUSH PRN ×3 (01:55→08:07)
[2017-01-07 04:00] VITALS: BP 138/74; PULSE 69; RESP 18; TEMP 97.5; O2SAT 97
[2017-01-07] MEDS: ACETAMINOPHEN/HYDROcodone 325 MG/10 MG TAB PO PRN ×4 (04:07→18:03)
[2017-01-07] MEDS: DOCUSATE SODIUM 50 MG/SENNA 8.6 MG TAB PO SCH ×2 (08:10→21:02)
[2017-01-07] MEDS: SODIUM CHLOR 0.9% 1000 ML INJ 1,000 ML IV SCH (08:11)
[2017-01-07] MEDS: SODIUM CHLORIDE 0.9% FLUSH 10 ML FLUSH IV FLUSH SCH ×2 (08:14→21:02)
[2017-01-07 08:45] VITALS: BP 167/77; PULSE 69; RESP 20; TEMP 97.8; O2SAT 94
[2017-01-07 12:36] VITALS: BP 162/83; PULSE 67; RESP 20; TEMP 98; O2SAT 99
--- NOTE | 2017-01-07 12:58 | HHI.PR ---
Subjective Remarks PAIN WITH [place]ALLON FLANK PAIN RESOLVED WANTS EITHER TO HAVE SURGERY HERE OR GO HOME TO [place] Objective - Vital Signs Date Time Temp Pulse Resp B/P Pulse Ox O2 Delivery O2 Flow Rate FiO2 01/07/17 12:36 98.0 67 20 162/83 99 01/05/17 17:20 Room Air Result Diagram: 01/06/17 0746 01/06/17 0746 Objective Remarks PELVIC EXAM WITH MOBILE UTERUS APPROX 18 WEEKS NO CVAT DO DVT SX A/P Assessment and Plan PT WITH LARGE UTERUS WITH URETERAL OBSTRUCTION WITH STENT IN PLACE THE CR HAS NORMALIZED WILL NEED TO KEEP CATH LONG STENT IS IN PLACE DISCUSSED WITH HER YOUTH SUPPORT WORKER, DR HART, IN [place] AND HE IS ABLE TO EITHER DO CASE OR REFER IF NEEDED SPOKE WITH DR ALANIZ AND FEELS THAT SHE IS BEST SERVED WITH MANAGEMENT CLOSER TO HOME AND DOES NOT HAVE ROOM IN OR FOR A FEW WEEKS FOR NON EMERGENT CASE I CAN DO THIS CASE OPEN, BUT I FEEL THAT SHE WOULD BE BEST SERVED WITH ROBOTICS IN TERMS OF OUTCOMES AND RISK OF POST OP SEQUELA SARCOMA RISK IS LOW BUT NOT ZERO; WOULD AVOID MORCELLATION WILL DISCUSS WITH PATIENT AND AGAIN TODAY AND SEE IF DR BROWN MAY HAVE ANY SUGGESTIONS IF SHE GOES HOME TODAY, WOULD NEED PAIN MEDS, SUPPRESSION DOSE ABX WHILE [place] IS IN Star Horner MD Jan 07, 2017 12:58
--- NOTE | 2017-01-07 16:07 | MB ---
cc: SHAN NORIEGA MD DATE OF CONSULTATION 01/07/2017 REASON FOR CONSULTATION Consideration of hysterectomy for uterine fibroids. HISTORY OF THE PRESENT ILLNESS The patient is a 51-year-old female, 2, para 2 who has a somewhat confounding history. Apparently she was in [place] where she resides and was noted on last to have an issue with back pain. She went to the emergency room and was found to have large uterus with hydronephrosis on the right. She had a stent placed which resolved the hydronephrosis. Her creatinine improved and she was given the okay to travel to [place] to [place]. The patient presented to the emergency room at [facility] with complaint of urinary retention. She came to the ER, was catheterized and found to have an approximately 1000 cc of urine in the bladder. She had a CT scan that showed a large uterus with at least two fibroids one 11 cm and one 3 cm. Hydronephrosis had improved but she was having issues with pain and retention and was admitted. PAST MEDICAL HISTORY The patient's medical history is negative for heart, lung, liver disease, hypertension, diabetes or stroke. PAST SURGICAL HISTORY None. 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 Her last period was approximately 8 months ago. SOCIAL HISTORY She is and has good social support. Works in [employer] business. MEDICATIONS None. ALLERGIES NONE. REVIEW OF SYSTEMS Pelvic pressure, pain, discomfort. Left costovertebral angle tenderness. No nausea or vomiting, fever or chills. PHYSICAL EXAMINATION VITAL SIGNS: She is afebrile. Vital signs stable. Blood pressure 120/70. GENERAL: Patient is alert and oriented in no acute stress. No sign of cognitive dysfunction or depression. HEENT: Within normal limits. NECK: Supple. No JVD. CHEST: Clear. HEART: Regular rate and rhythm. ABDOMEN: Soft and nontender. No hepatosplenomegaly. No CVA tenderness. PELVIC: The uterus is palpable to approximately two fingerbreadths below the umbilicus. Pelvic examination normal external genitalia. Uterus is mobile but does fill the basin of the pelvis. No significant tenderness. Espinal catheter in place. EXTREMITIES: Normal. SKIN: Without rashes. NEUROLOGIC: Nonfocal. No DVT signs. LABORATORY DATA On admission her creatinine was 1.57, improved within 24 hours to 0.67. Liver function tests normal. White count on admission was 12, resolved to 9.7 within 24 hours. Urine is dark, hazy with white cells consistent with stent placement. The urine culture was negative at 48 hours out. IMAGING As above. Pelvic ultrasound showed enlarged uterus at least two fibroids, the largest [address] scan is consistent with the ultrasound, shows mild hydronephrosis both kidneys. No other significant issues except the uterine fibroids. ASSESSMENT The patient with uterine fibroids large enough to cause compression of the right ureter. She had a stent in place. She has established care with urology and guest service aide in [place]. The patient has been given the options of an abdominal hysterectomy while here at [facility] versus potentially a robotic or laparoscopic hysterectomy at her home office in [place]. I talked to her sales representative printing paper Dr. Bland at [facility] and he is willing to evaluate the patient to consider her for a robotic procedure and if he feels that he cannot perform it, then he could refer her to a center at [facility]. I have discussed the case with our guest service aide oncologist and he thinks that a robotic approach can be reasonably offered but at this point we have not availability on the robot anytime within the next several weeks. The patient and I and her discussed at length options. She would like to avoid open procedure if possible. We did talk about issues regarding possible uterine sarcoma although she is at low risk it is not zero risk and it would probably be velasquez to avoid morcellation of these tumors, it might be better to perform a robotic hysterectomy and remove the specimens through the vagina rather than morcellation. At this point the patient is not presenting with any sort of emergent issue. She has improved renal function. She is showing no signs of infection, bleeding or other compromise. She wants to hold off on an open procedure and I agree with her in that regard. At this point I would suggest she be discharged home with a catheter in place as long as she has the stent. She should followup with her urologist in [place] as scheduled. She should follow up with her sales representative printing paper in [place] as scheduled. I would maintain p.o. pain medication and a suppression dose of antibiotics while she has her catheter in place. I discussed the findings and the recommendations with her attending physician Dr. Morrison and he will expedite discharge for her. I have given the patient my contact information and if there is any way I can expedite her care either at [facility] or [facility] I would be happy to do that. Time face to face with patient and discussing issues regarding planning and disposition 82 minutes. MD MARSHAL Mares/MARTHA /3:28 PM /3:38 PM MITUL
[2017-01-07] MEDS ORDERED: SENN1TAB PO (16:23)
[2017-01-07] MEDS ORDERED: HYDR-3516 PO (16:23)
[2017-01-07] MEDS ORDERED: CEFU1TAB20 PO (16:23)
--- NOTE | 2017-01-07 16:24 | HHI.DCPOC ---
Discharge Care Plan Diagnosis: (1) UTI (urinary tract infection) (2) Pelvic mass in female (3) Hydronephrosis (4) Pyelonephritis (5) Uterine fibroid (6) Obstructive uropathy (7) EUGENIO (acute kidney injury) Goals to Promote Your Health * To prevent worsening of your condition and complications * To maintain your health at the optimal level Directions to Meet Your Goals Take your medications as prescribed Follow your dietary instruction Follow activity as directed Keep your appointments as scheduled Take your immunizations and boosters as scheduled If your symptoms worsen call your PCP, if no PCP go to Urgent Care Center or Emergency Room Smoking is Dangerous to Your Health. Avoid second hand smoke Call the 24-hour hour crisis hotline for domestic abuse at Chad Russell MD Jan 07, 2017 16:24
[2017-01-07 16:25] VITALS: BP 156/81; PULSE 67; RESP 19; TEMP 96.8; O2SAT 97
[2017-01-07] MEDS: cefTRIAXone INJ 2,000 MG in SODIUM CHLORIDE 0.9% INJ 100 ML IV SCH (18:00)
[2017-01-07] MEDS ORDERED: PHENAZOPYRIDINE HCL 100 MG TAB PO ONE (20:00)
[2017-01-07 21:20] VITALS: BP 169/78; PULSE 56; RESP 18; TEMP 97.8; O2SAT 97
--- NOTE | 2017-01-07 22:42 | HHI.PR ---
Subjective Remarks deferred entry - patient seen earlier at 16:15 hrs patient states left flank pain has subsided denies fevers and chills Objective Vitals Vital Signs Date Time Temp Pulse Resp B/P Pulse Ox O2 Delivery O2 Flow Rate FiO2 01/07/17 21:20 97.8 56 18 169/78 97 01/07/17 19:03 16 01/07/17 16:25 96.8 67 19 156/81 97 01/07/17 12:36 98.0 67 20 162/83 99 01/07/17 09:12 16 01/07/17 08:45 97.8 69 20 167/77 94 01/07/17 04:00 97.5 69 18 138/74 97 01/07/17 00:00 97.4 60 18 143/80 95 I/O 01/06/17 01/06/17 01/06/17 01/07/17 01/07/17 01/07/17 07:00 15:00 23:00 07:00 15:00 23:00 Intake Total 0 ml 678 ml 360 ml Output Total 300 ml 650 ml 1950 ml Balance -300 ml 28 ml -1590 ml Intake Oral 0 ml 360 ml IV Total 678 ml Output Urine Total 300 ml 650 ml 1950 ml # Voids 2 # Bowel Movements 0 Result Diagram: 01/06/17 0746 01/06/17 0746 Imaging Last Impressions Abdomen/Pelvis CT 01/05/17 1223 Signed Impressions: Service Date/Time: Thursday, January 05, 2017 13:13 - CONCLUSION: There is significant mass effect on the bladder which is displaced anteriorly with mild to moderate hydronephrosis in both kidneys related to a huge fibroids inside the uterus the largest measures 13 cm in size causing significant mass effect on the bladder and bilateral distal ureters. Jessica Welsh MD Pelvis Ultrasound 01/05/17 0000 Signed Impressions: Service Date/Time: Thursday, January 05, 2017 22:19 - CONCLUSION: 1. Enlarged and heterogeneous uterus containing at least 2 masses with the largest measuring 10.9 cm. These are not completely characterized on this study but could represent uterine fibroids. The largest has mass effect on the endometrium. 2. Trace free fluid in the posterior cul-de-sac. Faisal Gambino MD Objective Remarks AAOx3 NAD Clear lungs BL Left CVA tenderness soft abdomen, non tender, non distended, mass felt just below umbilicus. no edema in extremities Procedures none Medications and IVs Current Medications Medications (Trade) Dose Ordered Sig/Leslie Route Start Time Stop Time Status Last Admin (NS Flush) 2 ml UNSCH PRN IV FLUSH 01/05/17 17:00 (NS Flush) 2 ml BID IV FLUSH 01/05/17 21:00 01/06/17 21:38 (Tylenol) 650 mg Q4H PRN PO 01/05/17 17:00 (Zofran Inj) 4 mg Q6H PRN IVP 01/05/17 17:00 (Phuong-Colace) 1 tab BID PO 01/05/17 21:00 01/07/17 21:02 (Milk Of Magnesia Liq) 30 ml Q12H PRN PO 01/05/17 17:00 01/07/17 18:55 (Senokot) 17.2 mg Q12H PRN PO 01/05/17 17:00 01/07/17 14:24 (Dulcolax Supp) 10 mg DAILY PRN RECTAL 01/05/17 17:00 01/07/17 19:47 Lactulose 30 ml 30 ml DAILY PRN PO 01/05/17 17:00 01/07/17 19:46 (Rocephin Inj/NS Inj) 100 ml @ 200 mls/hr Q24H IV 01/05/17 18:00 01/06/17 18:49 ([place] 5-325 Mg) 1 tab Q4H PRN PO 01/05/17 19:45 ([place] 10-325 Mg) 1 tab Q4H PRN PO 01/05/17 19:45 01/07/17 18:03 (Morphine Inj) 2 mg Q2HR PRN IV PUSH 01/06/17 03:15 01/07/17 08:07 Urinary Catheter: No Vascular Central Line Catheter: No A/P Problem List: (1) Uterine fibroid ICD Code: D25.9 Status: Acute Plan: CT abd/pelvis personally reviewed shows significant mass effect on the bladder which is displaced anteriorly with mild to moderate hydronephrosis in both kidneys related to huge fibroids inside the uterus the largest measuring 13 cm in size causing significant mass effect on the bladder and bilateral distal ureters. The case was discussed over the phone with Dr. Tomlin. Kidney function has resolved and returned to normal after insertion of Espinal catheter probably pointing to urinary retention as the main etiology for the acute kidney injury. At this point Dr. Tomlin and I think there is now emergency on undergoing a hysterectomy. I explained this to the patient, however the patient is adamant that she will not leave the hospital until she has a definite treatment with a hysterectomy before she leaves the hospital. 01/[address] rose who discussed the case with the patient. Will discharge the patient home with a leg bag for the patient to fu at home in [place] with her RADIO INTERFERENCE TROUBLE SHOOTER and Urologist for definitive treatment. Will discharge on oral Cefuroxime. (2) Obstructive uropathy ICD Code: N13.9 Status: Acute Plan: Likely secondary to urinary retention probably secondary to postop bladder distention versus bladder spasm secondary to stent placement. Discharge home with a leg bag as above (3) Hydronephrosis ICD Code: N13.30 Status: Acute Plan: Hydronephrosis likely secondary to urinary retention and uterine fibroid compression of the ureters. Management as above. (4) Pyelonephritis ICD Code: N12 Status: Acute Plan: Patient with left CVA tenderness, positive urinalysis, on IV Rocephin 2 g every 24 hours which I will continue. Urine culture pending. Continue pain control with [place] and morphine when necessary. (5) EUGENIO (acute kidney injury) ICD Code: N17.9 Status: Resolved Plan: Resolved after Espinal placement and IV fluid administration. Likely due to obstructive uropathy secondary to urinary retention and in less part secondary to uterine fibroid. Assessment and Plan DVT prophylaxis: SCDs. Discharge Planning DC home today. Problem Qualifiers (1) Uterine fibroid: Qualified Code: D25.9 - Uterine leiomyoma, unspecified location (2) Hydronephrosis: Qualified Code: N13.30 - Hydronephrosis, unspecified hydronephrosis type Chad Russell MD Jan 07, 2017 22:42
[2017-01-07] MEDS ORDERED: ENALAPRILAT 1.25 MG/ML VIAL IV PUSH PRN (22:45)
--- NOTE | 2017-01-07 23:33 | HHI.PR ---
Addendum to Inpatient Note Addendum Reason: Additional Documentation Additional Information At around 1930, I spoke with the patient's nurse and she said that the patient was refusing to be discharged home because of pain that may be related to bladder spasms or constipation because the patient had not had a BM in 5 days. I reviewed the patient's medical record and I placed orders for a one time dose of Pyridium 100 mg and advised her to administer prescribed treatments for constipation. I told her to notify us if her symptoms persisted despite treatment. The patient was seen and examined tonight at around 11:30 p.m. as she still was having some pain and had not had any BM. The patient states that she had severe left flank pain rated 10/10 at about 6 p.m. this evening and describes it as a pressure. She says that earlier in the day, Dr. Morrison told her that she might be constipated (she reports she's not had a BM in 5 days) and this may be contributing to her pain. She says that the pain at 1800 was different than anything she'd previously felt and she refused to be discharged home until she could get control of it. She says she took medication for constipation and has not had a BM yet. She has had a Dulcolax suppository, Phuong -Colace, lactulose, and MOM without results. She said she sat on the commode and felt like some of it was "moving around" and this helped her left flank pain. She also says she took [place] (per EMR she took 10/325 mg at 1803 on ) which took longer than the 30 minutes it normally takes to start to relieve her pain. It took about 1.5 hours to start working and this really worries her. She states her left flank pain is currently 6/10. No CVA tenderness bilaterally upon exam. Abdomen with normally active bowel sounds, soft, with mild distention which is worse on the right and mild tenderness noted with palpation, no rebound, no guarding. We will continue to monitor her overnight and primary team will follow up in a.m. . Anh Trinidad Jan 07, 2017 23:33
[2017-01-08] VITALS: BP 145/64; PULSE 65; RESP 18; TEMP 97; O2SAT 97
[2017-01-08 03:25] VITALS: BP 173/82; PULSE 63; RESP 18; TEMP 97.8; O2SAT 97
[2017-01-08] MEDS: MORPHINE SULFATE 4 MG/ML INJ IV PUSH PRN ×2 (03:48→07:35)
[2017-01-08 04:36] VITALS: BP 151/81; PULSE 59; RESP 17; O2SAT 97
--- NOTE | 2017-01-08 04:43 | RADRPT ---
EXAM DATE/TIME: 01/08/2017 03:42 [place] COMPARISON: CT ABDOMEN & PELVIS W CONTRAST, January 05, 2017, 13:13. INDICATIONS : Vomiting. MEDICAL HISTORY : None. SURGICAL HISTORY : None. ENCOUNTER: Subsequent ACUITY: 2 days PAIN SCORE: 0/10 LOCATION: Bilateral abdomen FINDINGS: Signal supine frontal view the abdomen demonstrates air within bowel in a nonobstructive pattern. Rig ht ureteral stent is present and is deviated laterally in the pelvis secondary to the uterus mass. No organomegaly is appreciated. No acute osseous abnormality is seen. CONCLUSION: 1. No acute abnormality is identified. 2. Right ureteral stent in the pelvis is deviated laterally secondary to the uterine mass. Faisal Gambino MD on January 08, 2017 at 4:40 Board Certified Radiologist. This report was verified electronically.
[2017-01-08 07:57] LABS: AUTOMATED NEUTROPHIL # 6.8 TH/MM3 (1.8-7.7); BASOPHIL # 0.1 TH/MM3 (0-0.2); BASOPHIL % 0.8 % (0.0-2.0); EOSINOPHIL # 0.2 TH/MM3 (0-0.4); EOSINOPHIL % 2.3 % (0.0-4.0); HEMATOCRIT 32.9 % (35.0-46.0); HEMO FLAGS DIFF FINAL; LYMPH % 8.6 % (9.0-44.0); LYMPHOCYTE # 0.7 TH/MM3 (1.0-4.8); MEAN CELL VOLUME 81.5 FL (80.0-100.0); MEAN CORPUSCULAR HEMOGLOBIN 27.2 PG (27.0-34.0); MEAN CORPUSCULAR HGB CONC 33.4 % (32.0-36.0); MONO % 7.7 % (0.0-8.0); NEUT % 80.6 % (16.0-70.0); PLATELET COUNT 247 TH/MM3 (150-450); RED BLOOD COUNT 4.03 MIL/MM3 (4.00-5.30); WHITE BLOOD COUNT 8.4 TH/MM3 (4.0-11.0)
[2017-01-08 08:00] VITALS: BP 178/84; PULSE 68; RESP 16; TEMP 99.1; O2SAT 94
[2017-01-08 08:15] LABS: BICARBONATE 25.1 MEQ/L (21.0-32.0); POTASSIUM 3.3 MEQ/L (3.5-5.1)
[2017-01-08] MEDS: DOCUSATE SODIUM 50 MG/SENNA 8.6 MG TAB PO SCH (09:29)
[2017-01-08] MEDS: ACETAMINOPHEN/HYDROcodone 325 MG/10 MG TAB PO PRN (09:30)
== END 2017-01-08 12:45 | disposition home or self-care (01) | DRG 694 ==
LOC: NEPC 10:37 → NEDA 14:16 → HOCB 17:52
PROVIDERS: ADMIT Hospitalist; ATTEND Hospitalist
DX: N13.1 Hydronephrosis with ureteral stricture, not elsewhere classified (principal); N17.9 Acute kidney failure, unspecified; E87.1 Hypo-osmolality and hyponatremia; N10 Acute pyelonephritis; R33.9 Retention of urine, unspecified; D25.9 Leiomyoma of uterus, unspecified; D64.9 Anemia, unspecified; E87.6 Hypokalemia
CPT/HCPCS: 74000; 74176; 74177; 76830; 76856; 80048; 80053; 81001; 83690; 83735; 85025; 87086; 96360; J0696; J2270; J2405; J7030; P9612; Q9967